=== PATIENT | female | born 2000 | race Caucasian/White ===

== ENCOUNTER 2022-01-18 07:17 | Outpatient (CLI) | payer MEDICAID, SELFPAY ==
--- NOTE | 2022-01-18 07:22 | US_ITS ---
WS: [id number] OBSTETRICAL ULTRASOUND COMPLETE HISTORY: SECOND TRIMESTER HIGH RISK COMPARISON: None available. Single intrauterine gestation in variable presentation. Cervix is Closed and normal length. Cervical length is 4.9 cm. Normal amount of amniotic fluid surrounds the fetus. Placenta: Posterior and fundal, no previa or abruption. Placenta grade 0 Heart: 138 BPM. Four chambers are identified. The outflow tracts are not well demonstrated. Anatomy: Intracranial structures are normal. Limited visualization of the spine. There are several [place] gaps within the spine including in the cervical and and lumbosacral region. This is probably techn ical. No mass identified. Poor depiction of the skin covering the spine. kidneys, stomach and u rinary bladder are unremarkable. Abdominal wall, three-vessel cord and cord insertion site are normal . 4 extremities are present. profile: Not well visualized. Gender: Male. measurements: BPD = 4.3 cm = 19w0d HC = 16.2 cm = 19w0d AC = 13.7 cm = 19w1d FL = 3.0 cm = 19w1d EFW: 276 g. Biometry is internally concordant. AGA by ultrasound: 19w0d SHO by ultrasound: 06/14/2022 I suspect there is an over estimation of the age. The caliber placement of the abdominal circum ference, BPD and head circumference are not accurately positioned. This may falsely increase the age of the fetus. This should also be reevaluated. US/US OB >= 14 weeks fetus [id number] IMPRESSION: 1. Single intrauterine gestation of 19w0d with an SHO of 06/14/2022. 2. Suspect overestimation of the age. The caliber placement for the head measurements and abdominal circumference are over exaggerated which would incr ease in the age of the fetus. 3. Technically limited evaluation of the spine, profile and heart outflow tracts. Recommend short-term follow-up.
== END 2022-01-18 07:18 | disposition home or self-care (01) ==
LOC: RAD 07:17
PROVIDERS: Visit Provider Family Medicine
DX: O09.92 Supervision of high risk pregnancy, unspecified, second trimester (principal); Z3A.19 19 weeks gestation of pregnancy
CPT/HCPCS: 76805

== ENCOUNTER 2022-05-30 23:43 | Inpatient (IN) | payer MEDICAID, SELFPAY ==
[2022-05-30] VITALS (11 sets, daily range): BP systolic 110–139; BP diastolic 65–97; PULSE 75–90; RESP 18; BMI 4218.0
[2022-05-30] MEDS: lactated ringers 1,000 ML 999 ML IV (23:23)
[2022-05-30] MEDS: fentaNYL 50 mcg/mL INJ 2mL IVP (23:25)
[2022-05-31] VITALS (71 sets, daily range): BP systolic 89–131; BP diastolic 46–86; PULSE 62–115; RESP 18; TEMP 36.4–36.8; O2SAT 97–99
[2022-05-31 00:24] LABS: Basophils % 0.2 %; Eosinophils # 0.1 10^3/uL (0.0-0.8); Eosinophils % 0.4 %; Hemoglobin 11.4 g/dL (11.5-15.3); Lymphocytes # 1.9 10^3/uL (0.8-4.8); Lymphocytes % 9.9 %; Mean Corpuscular HGB Conc 32.6 g/dL (30.0-36.0); Mean Corpuscular Hemoglobin 28.1 pg (28.0-34.0); Mean Corpuscular Volume 86.4 fl (81-99); Mean Platelet Volume 13.1 fL (7.4-10.4); Monocytes # 1.2 10^3/uL (0.2-0.9); Monocytes % 6.6 %; Neutrophils # 15.42 10^3/uL (1.8-7.7); Neutrophils % 82.1 %; Nucleated Red Blood Cells % 0 %; Platelet Count 200 10^3/cmm (130-400); Red Blood Count 4.05 10^6/uL (4.1-5.3); Red Cell Distribution Width 13.5 % (12.1-15.1); White Blood Count 18.8 10^3/uL (4.0-10.0)
[2022-05-31] MEDS: fentaNYL 50 mcg/mL INJ 2mL IVP (00:55)
[2022-05-31] MEDS: lactated ringers 1,000 ML 999 ML IV (02:51)
--- NOTE | 2022-05-31 03:08 | ANES.PREANE2 ---
Pre-Anesthetic Assessment Height/Weight: Height 1.52 m Weight 68.039 kg Pulse Resp BP Pulse Ox O2 Del Method 80 18 110/59 98 05/31/22 03:06 05/31/22 00:55 05/31/22 03:06 05/31/22 02:57 05/30/22 23:33 Epidural Familial anesthetic complications: none Social Tobacco and No alcohol Airway Mallampati: Class II Dentition: chipped Anesthetic Plan ASA status: 2 Anesthesia: Regional (specify below) Risk of > 500 ml blood loss (7ml/kg in children): No Other Pertinent Information WBC 18.8 in setting of possible Bacterial vaginosis - Patient informed of increased risk of possible epidural abscess, states she would like to proceed Medications/Allergies Home Medications Medication Instructions Recorded Confirmed Last Taken Type PNV #[id number] acid-omega3 1 tab PO DAILY 05/30/22 05/30/22 05/30/22 History 0700 acetaminophen 500 mg PO DIRECTED PRN Pain 05/30/22 05/30/22 05/30/22 07:00 History Allergies Allergy/AdvReac Type Severity Reaction Status Date / Time No Known Allergies Allergy Verified 05/30/22 23:51 Current Medications Generic Name Dose Route Start Last Admin Trade Name Freq PRN Reason Stop Dose Admin Fentanyl 25 - 100 mcg 05/30/22 23:10 05/31/22 00:55 Fentanyl 50 Mcg/Ml Inj 2ml IVP 50 mcg Q1H PRN Administration SEVERE PAIN Dextrose/Lactated Ringer's 1,000 mls @ 125 mls/hr 05/30/22 23:15 05/31/22 01:54 Dextrose 5%-Lactated Ringers IV Not Given .Q8H OLIVA Lactated Ringer's 1,000 mls @ 999 mls/hr 05/30/22 23:10 05/31/22 02:51 Lactated Ringers IV 999 mls/hr .Q1H1M PRN Administration Per L&D Rescitation Protocol Ropivacaine 200 mg in 100 mls @ 13 mls/hr 05/30/22 23:15 05/31/22 02:58 Naropin Premix EPIDURAL 11 mls/hr .Q7H42M OLIVA Administration Lactated Ringer's 1,000 mls @ 999 mls/hr 05/30/22 23:13 05/31/22 02:51 Lactated Ringers IV Infused .Q1H1M PRN Infusion See label comments PFSH Anesthesia Family History (Updated 11/26/21 @ 10:37 by Lorraine Doshi) Denies family history of Colon cancer Ovarian cancer Diabetes Heart disease Hypercholesteremia Breast cancer Hypertension Uterine cancer Thyroid disease Stroke Female Reproductive History : 3 Data Anesthesia 05/30/22 23:20 Short CBC 05/30/22 Range/Units 23:20 WBC 18.8 H (4.0-10.0) 10^3/uL Hgb 11.4 L (11.5-15.3) g/dL Hct 35.0 L (37.0-47.0) % MCV 86.4 (81-99) fl Plt Count 200 (130-400) 10^3/cmm Neut % (Auto) 82.1 % Neut # (Auto) 15.42 H (1.8-7.7) 10^3/uL Cardiac Studies: No Data to Display
--- NOTE | 2022-05-31 03:09 | ANES.PROC ---
Anesthesia Procedures Procedure/Date: 05/31/22 Epidural: Time Out Performed: Yes Consents Signed: Procedure Consent Consent: requested by attending/covering physician, from patient, risks and benefits reviewed and patient agrees to proceed Lumbar Level: L3-L4 Epidural position: sitting Epidural procedure: sterile prep of area, 1% lidocaine to numb the area, 18 g needle, negative for paresthesia passed, neg for paresthesia, test dose given, 1.5% xylocaine 1:200k epi (5), 0.2% Ropivacaine bolus ml, placed PCEA, no systemic response, sterile dressing applied, L.U.D. no apparent complications and 0.2% Ropiavacaine @ mls/hr (11) Additional Comments: NIK at 5 cm, threaded to 11 cm. Pain free subsequent contraction. R Leg tingling
[2022-05-31] MEDS: dextrose 5%-lactated ringers 1,000 ML 125 ML IV (05:31)
--- NOTE | 2022-05-31 10:01 | PM.OPHPUD ---
Labor & Delivery H&P Update Date of Procedure: May 31, 2022 Date H&P Performed: 05/27/22 Admission Diagnosis: at 38w0d in active labor Planned procedure: expectant management and delivery
[2022-05-31] MEDS: oxytocin 30 UNIT/500 ML BAG 600 UNIT IV (10:03)
--- NOTE | 2022-05-31 10:04 | PM.DELIVERY ---
Delivery Note: Date of delivery: May 31, 2022 Estimated blood loss (mL): 100 Pre-Delivery Course: The she was blood type B+, antibody negative, hepatitis B surface antigen nonreactive, hepatitis C antibody reactive but no detectable hepatitis C RNA, HIV nonreactive, RPR nonreactive, rubella immune, GC chlamydia negative, UDS negative, she passed her glucose tolerance test, she was GBS negative. Her was complicated by a history of labor and delivery. She delivered her at approximately 30 weeks gestation. She delivered her second at 37 weeks gestation, was induced secondary to IUGR and had received Wagoner injections throughout the . She was maintained on Yesenia injections throughout this . Her last injection was at 36 weeks 6 days gestation. Delivery: This is a 21-year-old G3, P1102 at 38 weeks 0 days gestation who presented to labor and delivery in active labor. She received an epidural for pain management. She underwent artificial rupture of membranes with clear fluid when she was 7 cm dilated. She had a normal spontaneous vaginal delivery of a viable male infant weight 6 pounds 15 ounces, 3135 g Apgars of 9 at 9 over an intact perineum. There was no nuchal cord. The infant was suctioned at delivery and placed on the mother's chest. The cord was clamped and cut. The placenta was delivered grossly intact and normal to inspection. There were no lacerations. Mother and infant were doing well after delivery. Coding Level of Care Code Acute Director Of National Sales for Mike Caceres
[2022-05-31] MEDS: TRAMadol 50 mg Tablet PO ×2 (10:46→16:39)
[2022-05-31] MEDS: benzocaine-menthol 78 gm Canister 1 SPRAY TOPICAL (10:47)
[2022-05-31] MEDS: ibuprofen 800 mg tablet PO ×2 (12:29→20:33)
--- NOTE | 2022-05-31 19:01 | ANE.PACU2 ---
Inpatient post-anesthesia follow up: Airway intact: Yes Vital signs: Temperature 98.2 F Pulse Rate 65 Respiratory Rate 18 Blood Pressure 108/78 Pulse Oximetry 98 Oxygen Delivery Me thod Room Air Oxygen Flow Rate Fraction of Inspir ed Oxygen Hydration adequate: Yes Nausea and vomiting: No Pain level: 2 Mental status: Baseline
[2022-05-31] MEDS: docusate sodium 100 mg Capsule PO (20:33)
[2022-05-31 23:34] LABS: Hematocrit 35.7 % (37.0-47.0); Hemoglobin 11.4 g/dL (11.5-15.3); Mean Corpuscular HGB Conc 31.9 g/dL (30.0-36.0); Mean Corpuscular Hemoglobin 27.7 pg (28.0-34.0); Mean Corpuscular Volume 86.9 fl (81-99); Mean Platelet Volume 12.9 fL (7.4-10.4); Platelet Count 187 10^3/cmm (130-400); Red Blood Count 4.11 10^6/uL (4.1-5.3); Red Cell Distribution Width 13.3 % (12.1-15.1); White Blood Count 17.8 10^3/uL (4.0-10.0)
[2022-06-01] MEDS: TRAMadol 50 mg Tablet PO (04:27)
[2022-06-01 04:39] VITALS: BP 121/84; PULSE 86; RESP 18; TEMP 36.8; O2SAT 99
[2022-06-01] MEDS: prenatal vitamin Capsule 1 CAP PO (08:32)
[2022-06-01] MEDS: docusate sodium 100 mg Capsule PO ×2 (08:33→20:22)
[2022-06-01] MEDS: ibuprofen 800 mg tablet PO ×3 (08:33→20:22)
[2022-06-01 09:00] VITALS: BP 100/65; PULSE 70; TEMP 36.4; O2SAT 97
--- NOTE | 2022-06-01 12:51 | PM.PN ---
Subjective Subjective: Doing well. She does have bad cramps but otherwise no abdominal pain. Her bleeding has decreased today. Vitals/I&O/Wt Last Vital Signs Temp 98.2 F 06/01/22 04:39 Pulse 86 06/01/22 04:39 Resp 18 06/01/22 04:39 BP 121/84 06/01/22 04:39 Pulse Ox 99 06/01/22 04:39 O2 Del Method 06/01/22 04:39 Weight last 48 hrs Weight 68.039 kg Physical Exam Narrative: Alert and oriented, sitting up in bed, heart regular rate and rhythm, lungs clear to auscultation bilaterally, abdomen soft and nontender, fundus firm and U- 2, extremities have no calf tenderness and no edema Urinary Catheter Management: Judd Latex: Cath Placed During This Visit: yes Reason for Continuing Indwelling Catheter: Other Urinary Catheter Date of Insertion: 05/31/22 Urinary Catheter Time of Insertion: 03:44 Data 05/31/22 23:25 A&P Assessment and plan (1) (normal spontaneous vaginal delivery): Doing well. needs to stay inpatient so we will keep mother inpatient with him. Attestations Medical Necessity Statement*: Routine care Coding Level of Care Code Acute Generation Technician for g Fwd Diagnoses (normal spontaneous vaginal delivery) O80
[2022-06-01 16:15] VITALS: BP 105/55; PULSE 90; TEMP 36.7; O2SAT 96
[2022-06-01 22:18] VITALS: BP 96/57; PULSE 76; RESP 18; TEMP 36.4; O2SAT 99
[2022-06-02] MEDS: TRAMadol 50 mg Tablet PO (01:35)
[2022-06-02 04:30] VITALS: BP 108/64; PULSE 64; RESP 18; TEMP 36.7; O2SAT 98
[2022-06-02] MEDS: acetaminophen 500 mg Tablet 1000 MG PO (04:51)
[2022-06-02] MEDS: prenatal vitamin Capsule 1 CAP PO (07:33)
[2022-06-02] MEDS: docusate sodium 100 mg Capsule PO (07:33)
[2022-06-02] MEDS: ibuprofen 800 mg tablet PO (07:33)
--- NOTE | 2022-06-02 09:07 | P.DS_ITS ---
Discharge Providers Date of Admission: 05/30/22 23:43 Date of Discharge: June 02, 2022 Attending Provider at Admission: Bessy Hinton MD Attending Provider at Discharge: Bessy Hinton MD Diagnoses at Discharge Discharge Diagnosis (1) (normal spontaneous vaginal delivery): Status: Acute Reason for Visit Reason for Visit: CONTRACTIONS Hospital Course Hospital Course This is a 21-year G3 now P3 who presented to labor and delivery in active labor. She had a normal spontaneous vaginal delivery of a viable male . Mother and did well after delivery. Mother had off-and-on on average vaginal bleeding, some cramping of her uterus but otherwise was feeling well and was requesting discharge home. Physical Exam Narrative: Alert and oriented, sitting up in bed, heart regular rate and rhythm, lungs clear to auscultation bilaterally, abdomen is soft and nontender, fundus is firm and U- 3, extremities have trace edema but no calf tenderness. Urinary Catheter Management: Judd Latex: Cath Placed During This Visit: yes Reason for Continuing Indwelling Catheter: Other Urinary Catheter Date of Insertion: 05/31/22 Urinary Catheter Time of Insertion: 03:44 Discharge Data Studies Completed and Pending Laboratory Results WBC 17.8 10^3/uL (4.0-10.0) H 05/31/22 23:25 RBC 4.11 10^6/uL (4.1-5.3) 05/31/22 23:25 Hgb 11.4 g/dL (11.5-15.3) L 05/31/22 23:25 Hct 35.7 % (37.0-47.0) L 05/31/22 23:25 MCV 86.9 fl (81-99) 05/31/22 23:25 MCH 27.7 pg (28.0-34.0) L 05/31/22 23:25 MCHC 31.9 g/dL (30.0-36.0) 05/31/22 23:25 RDW 13.3 % (12.1-15.1) 05/31/22 23:25 Plt Count 187 10^3/cmm (130-400) 05/31/22 23:25 MPV 12.9 fL (7.4-10.4) H 05/31/22 23:25 Neut % (Auto) 82.1 % 05/30/22 23:20 Lymph % (Auto) 9.9 % 05/30/22 23:20 [place] % (Auto) 6.6 % 05/30/22 23:20 Eos % (Auto) 0.4 % 05/30/22 23:20 Baso % (Auto) 0.2 % 05/30/22 23:20 Neut # (Auto) 15.42 10^3/uL (1.8-7.7) H 05/30/22 23:20 Lymph # (Auto) 1.9 10^3/uL (0.8-4.8) 05/30/22 23:20 [place] # (Auto) 1.2 10^3/uL (0.2-0.9) H 05/30/22 23:20 Eos # (Auto) 0.1 10^3/uL (0.0-0.8) 05/30/22 23:20 Baso # (Auto) 0.0 10^3/uL (0.0-0.1) 05/30/22 23:20 Nucleated RBC % (auto) 0 % 05/30/22 23:20 Nucleated RBCs # 0.0 /100WBC 05/30/22 23:20 Vitals Last Vital Signs Temp 98.0 F 06/02/22 04:30 Pulse 64 06/02/22 04:30 Resp 18 06/02/22 04:30 BP 108/64 06/02/22 04:30 Pulse Ox 98 06/02/22 04:30 O2 Del Method 06/02/22 04:30 Discharge Plan Discharge Patient Disposition: Home Condition: Stable Prescriptions: New ibuprofen 800 mg Tablet 800 mg PO TID PRN (Reason: Abdominal Discomfort) Qty: 30 0RF Continued acetaminophen tablet 500 mg PO DIRECTED PRN (Reason: Pain) PNV #15-[id number] acid-omega3 tablet 1 tab PO DAILY Discharge Orders: Discharge Order (Routine); Ordered 06/02/22 Ordered By: Bessy Hinton Discharge Diet: Usual diet Discharge Activity: Limit activity as instructed Patient Instructions: Opioid Safety Discharge Attestations Time Spent in Discharge Care*: less than 30 min Quality Metrics Clinical Quality Measures [ No reported AMI, CVA or VTE this stay] Coding Level of Care Code Acute Chg FW DC note Diagnoses (normal spontaneous vaginal delivery) O80
[2022-06-02 11:38] VITALS: BP 96/56; PULSE 79; RESP 15; TEMP 36.6; O2SAT 98
== END 2022-06-02 11:35 | disposition home or self-care (01) | DRG 807 ==
LOC: OPOB 05-31 15:06
PROVIDERS: Admitting Provider Family Medicine; Visit Provider Family Medicine
DX: O99.334 Smoking (tobacco) complicating childbirth (principal); Z37.0 Single live birth; Z3A.38 38 weeks gestation of pregnancy
CPT/HCPCS: 36415; 51702; 59025; 59409; 85025; 85027; 96374; 96376; 99211; J2590; J2795; J3010; J7120; J7121

== ENCOUNTER → 2024-06-07 14:55 | Outpatient (BNVA) | payer MEDICAID, SELFPAY | PROVIDERS: PCP Family Medicine; Visit Provider Clinical Nurse Specialist Adult Health | DX: Z30.013 Encounter for initial prescription of injectable contraceptive (principal) | CPT/HCPCS: 81025 ==